=== PATIENT | male | born 2005 | race Caucasian/White ===

== ENCOUNTER 2023-10-04 11:31 | Emergency (ER) | payer BC, SELFPAY ==
[2023-10-04 11:32] VITALS: BP 131/67; PULSE 90; RESP 18; TEMP 36.6; O2SAT 100; BMI 28.4
--- NOTE | 2023-10-04 12:24 | RAD_ITS ---
STUDY: X-RAY CHEST REASON FOR EXAM: Male, 18 years old. Chest pain TECHNIQUE: Single AP portable view of the chest. COMPARISON: None. FINDINGS: EKG electrodes are seen. The lungs are clear and expanded. There is no demonstrated pleural abnormality. Normal size heart. Normal mediastinum and nolberto. Normal visualized pulmonary arteries. Normal visualized aortic arch and descending thoracic aorta. Normal visualized thoracic spine. Normal visualized ribs, clavicles, and shoulders. There is no demonstrated abnormality of the visualized soft tissue structures of the upper abdomen. RAD/Chest 1 View (Portable) IMPRESSION: Normal x-ray examination of the chest. Electronically Signed: Dre Campuzano MD at 12:51 EDT ,
--- NOTE | 2023-10-04 12:24 | EKG12_ITS ---
Test Reason : PALPS Blood Pressure : / mmHG Vent. Rate : 082 BPM Atrial Rate : 082 BPM P-R Int : 146 ms QRS Dur : 086 ms QT Int : 372 ms P-R-T Axes : 046 071 055 degrees QTc Int : 434 ms Sinus rhythm with marked sinus arrhythmia Otherwise normal ECG Confirmed by DURGA COYLE, ABBI ([id number]), dictionary editor ERNESTINE CORLEY ([id number]) on 10/05/2023 2:09:46 PM Referred By: BHUPINDER Confirmed By:ABBI CALIXTO MD
--- NOTE | 2023-10-04 12:40 | ED.RN ---
pt. refusing blood work. Dr. Phan aware
--- NOTE | 2023-10-04 12:54 | EX.ED.DYSGE1 ---
HPI History of Present Illness Chief Complaint: Palpitations Narrative Narrative: 38-year-old male presenting with palpitations. He states he started this morning last about 30 minutes prior to arrival. Patient states he currently does not have them. He is sitting in the bed. Denies chest pain or shortness of breath. He states he thinks he freaked himself out. He is not having lightheadedness or dizziness he has no history of cardiac issues. No history of pulmonary issues. Patient states he has a history of migraines and undiagnosed acid reflux. He sometimes vomits in the morning secondary to reflux. He states he works at [employer] and eats a lot of pizza. [facility] Medical History Migraines Home Medications ?Medication ?Instructions ?Recorded ?Last Taken ?Type sumatriptan succinate 25 mg tablet 25 mg PO headache 10/04/23 Unknown History Allergy/AdvReac Type Severity Reaction Status Date / Time No Known Allergies Allergy Verified 10/04/23 11:32 Social History Smoking Status: Never smoker ROS ROS ED Constitutional Constitutional ED: Denies chills, fever(s) or sweats Eyes Eyes: Denies blurry vision or change in vision ENT ENT ED: Denies ear pain or sore throat Cardiovascular Cardiovascular: Reports palpitations and racing heartbeat; Denies chest pain Respiratory/Chest Respiratory/Chest: Denies cough, dyspnea or sputum Gastrointestinal Gastrointestinal: Denies abdominal pain, constipation, diarrhea, nausea or vomiting Genitourinary Genitourinary ED: Denies dysuria, hematuria or urinary frequency Musculoskeletal Musculoskeletal: Denies arthralgias, myalgias or neck pain Integumentary Denies abscess, Abrasions or rash Neurologic Neurologic: Denies headache(s), paresthesias or weakness Psychiatric Psychiatric: Denies anxiety, depression, suicidal ideation or suicidal thoughts Endocrine Endocrinology: Denies polydipsia or polyuria EXAM Physical Exam Const Vital Signs: 10/04/23 11:32 10/04/23 12:55 10/04/23 12:55 Temperature 97.9 F 97.6 F L Temperature Source Temporal Pulse Rate 90 55 L Respiratory Rate 18 22 H Blood Pressure 131/67 H 129/79 H Blood Pressure Mean 88 95 Pulse Ox 100 98 Oxygen Delivery Method Room Air Room Air General Appearance ED: Negative for pallor HEENT Reports normocephalic, head/scalp atraumatic and moist mucous membranes Eyes PERRL and EOMs intact bilaterally Neck no lymphadenopathy and supple Chest Wall inspection of chest normal and palpation of chest normal Resp normal respiratory effort and clear to auscultation bilaterally Auscultation: Negative for rales, rhonchi or wheezes Cardio regular rate and regular rhythm GI Palpation: soft Narrative: Deferred Extremity normal to inspection General Extremety ED: Negative for edema General Extremity: Negative for edema Neuro oriented x3 and CN's II-XII intact bilaterally Sensorium / Orientation: alert Motor Exam: strength 5/5 throughout Psych mental status grossly normal Attitude: No agitated Mood & Affect: anxious Skin no rashes or lesions noted and no wounds General Skin Exam: Negative for jaundice or pallor MDM MDM MDM Narrative Medical decision making narrative: Patient presenting with palpitations. States they last about 30 minutes. They are currently gone. Patient states he was seen in the ER 2 weeks ago for similar symptoms. He refused lab work van and is refusing lab work today. I did obtain an EKG and interpreted myself shows a sinus rhythm with sinus arrhythmia at 82 bpm without sign of ischemic change. Chest x-ray on my interpretation shows no acute cardiopulmonary process. I did offer the patient to get lab work but he states he gets freaked out with the thought of needles and does not want to have any blood work. I counseled him that I cannot further evaluate him without labs but his chest x-ray and EKG were normal. Return precautions were discussed. Impression: 1. Palpitations Lab Data Attestation: I reviewed the patient's lab results. Radiography Diagnostic Testing: Clinical Impression(s) from Imaging Studies Chest X-Ray 10/04/23 12:24 IMPRESSION: Normal x-ray examination of the chest. Electronically Signed: Dre Campuzano MD at 12:51 EDT , Discharge Plan Triage Chief Complaint: Palpitations ED Provider: Nathaniel Phan Dx/Rx/DC Orders Instructions: ED Palpitations Prescriptions: No Action sumatriptan succinate 25 mg tablet 25 mg PO Referrals: [facility] [Provider Group] - 3-5 Days Print Language: British Disposition Disposition: Home, Self Care
[2023-10-04 12:55] VITALS: BP 129/79; PULSE 55; RESP 22; TEMP 36.4; O2SAT 98
== END 2023-10-04 13:04 | disposition home or self-care (01) ==
LOC: ED 13:01
PROVIDERS: Emergency Provider Student in an Organized Health Care Education/Training Program; PCP Family Medicine; Visit Provider Student in an Organized Health Care Education/Training Program
DX: R00.2 Palpitations (principal); I49.8 Other specified cardiac arrhythmias
CPT/HCPCS: 71045; 93005; 99283